=== PATIENT | female | born 1970 | race Caucasian/White ===

== ENCOUNTER 2023-09-14 09:03 | Outpatient (CLI) | payer OTHER ==
[2023-09-14] MEDS ORDERED: Iopamidol 370 76% 100 ML VIAL ONE (10:59)
== END 2023-09-14 09:04 | disposition home or self-care (01) ==
LOC: NM 09:03
PROVIDERS: ATTEND Internal Medicine Hematology & Oncology
DX: C50.811 Malignant neoplasm of overlapping sites of right female breast (principal); K44.9 Diaphragmatic hernia without obstruction or gangrene
CPT/HCPCS: 71260; 74177; 78306; A9503; Q9967

== ENCOUNTER 2023-09-27 13:28 | Outpatient (CLI) | payer OTHER | END 2023-09-27 13:29 | disposition home or self-care (01) | LOC: BICMRI 13:28 | PROVIDERS: ATTEND Internal Medicine Hematology & Oncology | DX: C50.811 Malignant neoplasm of overlapping sites of right female breast (principal); N63.21 Unspecified lump in the left breast, upper outer quadrant; R59.0 Localized enlarged lymph nodes | CPT/HCPCS: A9577; C8908 ==

== ENCOUNTER 2024-01-12 09:35 | Outpatient (CLI) | payer OTHER | END 2024-01-12 09:36 | disposition home or self-care (01) | LOC: BICMRI 09:35 | PROVIDERS: ATTEND Internal Medicine Hematology & Oncology | DX: C50.911 Malignant neoplasm of unspecified site of right female breast (principal); N63.11 Unspecified lump in the right breast, upper outer quadrant; N63.21 Unspecified lump in the left breast, upper outer quadrant | CPT/HCPCS: A9577; C8908 ==

== ENCOUNTER 2024-03-19 11:00 | Outpatient (CLI) | payer OTHER | END 2024-03-19 11:01 | disposition home or self-care (01) | LOC: BICCT 11:00 | PROVIDERS: ATTEND Radiology Radiation Oncology | DX: C50.411 Malignant neoplasm of upper-outer quadrant of right female breast (principal); K44.9 Diaphragmatic hernia without obstruction or gangrene; Z98.890 Other specified postprocedural states | CPT/HCPCS: 71260 ==